=== PATIENT | male | born 1975 | race Caucasian/White ===

== ENCOUNTER 2016-06-21 11:31 | Emergency (ER) ==
[2016-06-21 11:38] VITALS: BP 126/87
--- NOTE | 2016-06-21 11:54 | PROVIDER DOCUMENTATION ---
HPI-General Adult - General Source: patient <Isa Swartz - Last Filed: 06/21/16 11:51> - General Source: patient - History of Present Illness -Gen Adult Nature of Presenting Problems: Pt is 40 y/o M presents to the ED with request of prescriptions. Pt states he is out meds for neb and his inhaler. Pt states he does not have a PCP. Pt denies F Location of Pain/Injury: reports: none Pain Radiation: reports: no radiation Quality of Pain: reports: none Onset/Duration: reports: unsure Context/Activities at Onset: reports: light activity Modifying Factors: improves with: nothing Associated Symptoms: reports: cough (chronic). denies: anxiety, arm pain, back/ neck pain, chest pain, constipation, diaphoresis, diarrhea, dizziness, EENT symptoms, fatigue, fever/chills, genitourinary problems, headaches, heartburn, joint pain, loss of appetite, malaise, muscle aches, sinus congestion/drainage, nausea, rash, seizure, shortness of breath, sensory/motor loss, pain with inspiration, swelling/mass in abdomen, syncope, vomiting, weakness, trouble walking Similar Symptoms Previously?: Yes Recently seen or treated by another doctor?: No <Jaylin Sahu - Last Filed: 06/21/16 12:01> - General Chief Complaint: Request RX Stated Complaint: REQUEST RX Time Seen by Provider: 06/21/16 11:43 Allergies/Adverse Reactions: Patient Allergies Allergy/AdvReac Type Severity Reaction Status Date / Time No Known Allergies Allergy Verified 05/04/16 10:48 Home Medications: Home Medication List Medication Instructions Recorded Confirmed Last Taken Type Albuterol Sulfate [Albuterol 8.5 gm IH Q4-6H PRN PRN #1 05/04/16 Unknown Rx Sulfate Hfa] [email or web address] Albuterol [Albuterol Neb] 2.5 mg .SEE ORDER BID 05/04/16 05/04/16 Unknown History Albuterol [Albuterol Neb] 2.5 mg INH Q4H PRN PRN #30 neb 05/04/16 Unknown Rx Albuterol Sulfate Inhaler 2 puff INH [id number] #1 inhaler 05/17/16 Unknown Rx [Ventolin Hfa] Albuterol 2.5MG/Ipratrop 0.5MG 3 ml INH Q4-6H PRN PRN #60 neb 06/21/16 Unknown Rx [Duoneb] Albuterol [Albuterol Neb] 2.5 mg INH Q4H PRN PRN #60 neb 06/21/16 Unknown Rx Review of Systems - Adult - REVIEW OF SYSTEMS - ADULT Constitutional: denies: chills, fever Eyes: denies: blurred vision, double vision Ears, Nose, Mouth & Throat: denies: ear pain, nose pain, throat pain Cardiovascular: reports: irregular heart rate (tachy). denies: chest pain, heart murmur Respiratory: reports: cough. denies: shortness of breath, wheezing Gastrointestinal: denies: abdominal pain, diarrhea, nausea, vomiting Genitourinary: denies: dysuria, hematuria Musculoskeletal: denies: bone pain, joint pain, neck pain Integumentary: denies: hives, itching Neurological: denies: dizziness/vertigo, headache/migraines Psychiatric: reports: no symptoms reported Endocrine: reports: no symptoms reported Hematologic/Lymphatic: reports: no symptoms reported Allergic/Immunologic: reports: no symptoms reported All Other Systems: Reviewed and Negative <Jaylin Sahu - Last Filed: 06/21/16 12:01> Past History - Adult - PAST MEDICAL HISTORY-ADULT Major Childhood Illnesses: reports: denies history Cardiovascular: reports: denies history Respiratory: reports: asthma, COPD Gastrointestinal: reports: denies history Obstetrical/Gynecological: reports: denies history Genitourinary: reports: denies history Musculoskeletal: reports: denies history Neurological: reports: denies history Endocrine/Immune: reports: denies history Other Conditions: reports: denies history - PRIOR SURGERIES/PROCEDURES Surgical/Procedure History: reports: appendectomy, other (Right lung chest tube) - IMMUNIZATION STATUS Childhood Immunizations: See Nurse Assessment Flu Vaccine: See Nurse Assessment - FAMILY HISTORY Family History: reviewed, not pertinent <Isa Swartz - Last Filed: 06/21/16 11:51> - PAST MEDICAL HISTORY-ADULT Review of Records: reports: Nursing Assessment Review, Medications Reviewed, Social history reviewed & non-contributory. Major Childhood Illnesses: reports: denies history Cardiovascular: reports: denies history Respiratory: reports: asthma, COPD Gastrointestinal: reports: denies history Obstetrical/Gynecological: reports: denies history Genitourinary: reports: denies history Musculoskeletal: reports: denies history Neurological: reports: denies history Endocrine/Immune: reports: denies history Other Conditions: reports: denies history - PRIOR SURGERIES/PROCEDURES Surgical/Procedure History: reports: appendectomy - IMMUNIZATION STATUS Childhood Immunizations: See Nurse Assessment Flu Vaccine: See Nurse Assessment - FAMILY HISTORY Family History: reviewed, not pertinent - SOCIAL HISTORY Smoking: cigarettes, greater than 1 pack/day Provider spent 3-5 mins advising pt. on dangers of tobacco.: Discussed manners to quit use, and f/u contacts for add'l counseling. Substance Use: alcohol Alcohol Use Frequency: occasionally Number of drinks per typical drinking period:: 2 drinks Living Situation: family <Jaylin Sahu - Last Filed: 06/21/16 12:01> Physical Exam-General - PHYSICAL EXAM-ADULT Initial Vital Signs Reviewed: Yes - CONSTITUTIONAL General Appearance: appears well, alert, no apparent distress - EYES Eyes: PERRL/EOMI, pink conjunctivae, fundi clear, no AV nicking - HEAD, EARS, NOSE, MOUTH & THROAT HENMT: normocephalic/atraumatic, moist mucous membranes, normal ENT inspection, TMs normal, pharynx normal - NECK Neck: non-tender, full range of motion, supple, normal inspection - RESPIRATORY Respiratory: chest non-tender, lungs clear, no pleuratic chest pain, no respiratory distress, no accessory muscle use, wheezing (bilateral) - CARDIOVASCULAR Cardiovascular: normal peripheral pulses, no edema, no gallop, no JVD, no murmur , tachycardia - GASTROINTESTINAL (ABDOMEN) Abdominal Exam: normal bowel sounds, non tender, soft, no organomegaly, no pulsatile mass - LYMPHATIC Lymphatic: no adenopathy - MUSCULOSKELETAL Back Exam: normal inspection, no CVA tenderness, no vertebral tenderness Extremity: normal range of motion, non-tender, normal gait, normal inspection, no pedal edema, no calf tenderness, normal capillary refill, pelvis stable - SKIN Integumentary: normal color, normal turgor, warm/dry - NEUROLOGIC 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, grossly normal, no motor/sensory deficits - PSYCHIATRIC Psych/Mental Status: normal mood/affect, normal thought content, normal thought process, oriented x 3 <Jaylin Sahu - Last Filed: 06/21/16 12:01> Progress - PLAN OF CARE/RESULTS Progress/Plan/Lab Results: Vital Signs - 24 hr 06/21/16 11:35 Temperature 98 F Pulse Rate 126 H Respiratory 20 Rate Blood Pressure 126/87 O2 Sat by Pulse 96 Oximetry <Jaylin Sahu - Last Filed: 06/21/16 12:01> Departure - Departure Time of Disposition Order: 11:52 Certified Medical Emergency: Emergent <Isa Swartz - Last Filed: 06/21/16 11:51> - Departure Time of Disposition Order: 12:01 Certified Medical Emergency: Emergent <Jaylin Sahu - Last Filed: 06/21/16 12:01> - Departure DIAGNOSIS: Encounter for medication refill COPD (chronic obstructive pulmonary disease) Qualifiers: COPD type: unspecified COPD Qualified Code(s): J44.9 - Chronic obstructive pulmonary disease, unspecified Disposition: HOME 01 Condition: Stable Additional Instructions: Take medications as directed. Follow up with PCP for further management. Return if symptoms get worse. ED Follow Up Instructions: You have been treated by a care provider in the Emergency Department. These instructions are being provided to you so you can have an understanding of how to care for yourself upon discharge. Upon discharge from the Emergency Department, you are responsible for making arrangements for follow-up care by a physician of your choice. Take all prescribed medications as directed. Return to the Emergency Department immediately for any new or worsening symptoms. You may call the Physician Referral phone number at [phone] to obtain a list of Physicians who are taking new patients. Prescriptions: Albuterol [Albuterol Neb] 2.5 mg INH Q4H PRN PRN #60 neb PRN Reason: Shortness Of Breath Albuterol 2.5MG/Ipratrop 0.5MG [Duoneb] 3 ml INH Q4-6H PRN PRN #60 neb PRN Reason: Shortness Of Breath Referrals: Chris Armendariz MD [STAFF PHYSICIAN] - Forms: Return to School/Parent Work Instructions: Albuterol inhalation aerosol, Chronic Obstructive Pulmonary Disease, [id number], Albuterol; Ipratropium inhalation aerosol Attestation - Physician/ NAIN Attestation Patient care was provided by Advanced Practice Provider:: Yes Advanced Practice Provider:: Isa Swartz Advanced Practice Provider documentation review:: The Mid-level provider documentation, treatment plan and medical decision making was reviewed by the physician who agrees with all treatment and medical decision making by the MLP. <Isa Swartz - Last Filed: 06/21/16 11:51> - Scribe Verification/Attestation Scribe:: Jaylin Sahu Acting as Scribe for:: Isa Swartz Scribe documention review:: This chart was documented by a scribe and accurately reflects the service the provider performed and the decisions made by the provider. <Jaylin Sahu - Last Filed: 06/21/16 12:01> Physician Attestation
== END 2016-06-21 12:01 | disposition home or self-care (01) ==
LOC: P.ED 11:31
DX: J44.9 Chronic obstructive pulmonary disease, unspecified (principal); R05 Cough; R00.0 Tachycardia, unspecified; R06.2 Wheezing; J45.909 Unspecified asthma, uncomplicated; F17.210 Nicotine dependence, cigarettes, uncomplicated; Z76.0 Encounter for issue of repeat prescription; Z71.6 Tobacco abuse counseling
CPT/HCPCS: 99281

== ENCOUNTER 2016-07-05 00:14 | Emergency (ER) ==
[2016-07-05 00:52] LABS: URINE SOURCE VOIDED
[2016-07-05 00:59] LABS: BILIRUBIN URINE NEGATIVE (NEGATIVE); BLOOD URINE NEGATIVE (NEGATIVE); CLARITY CLEAR (CLEAR); COLOR YELLOW; GLUCOSE URINE NEGATIVE (NEGATIVE); LEUKOCYTES URINE NEGATIVE (NEGATIVE); NITRITE URINE NEGATIVE (NEGATIVE); PROTEIN URINE 1+(30 mg/dL) mg/dL (NEGATIVE); UROBILINOGEN URINE NORMAL
[2016-07-05] MEDS ORDERED: DUONEB (A & A) INH ONE (01:00)
--- NOTE | 2016-07-05 01:00 | PROVIDER DOCUMENTATION ---
HPI-General Adult - General Chief Complaint: General Adult Stated Complaint: RASH Time Seen by Provider: 07/05/16 00:52 Source: patient Allergies/Adverse Reactions: Patient Allergies Allergy/AdvReac Type Severity Reaction Status Date / Time No Known Allergies Allergy Verified 07/05/16 00:29 Home Medications: Home Medication List Medication Instructions Recorded Confirmed Last Taken Type Albuterol [Albuterol Neb] 2.5 mg INH Q4H PRN PRN #60 neb 06/21/16 1 Day Ago Rx Azithromycin [Zithromax Z-Khurram] 250 mg PO DIRECTED #1 pkg 07/05/16 Unknown Rx Butenafine HCl [Lotrimin Ultra] 24 gm TP BID #1 tube 07/05/16 Unknown Rx Methylprednisolone [Medrol Dosepak] 4 mg PO DIRECTED #1 package 07/05/16 Unknown Rx - History of Present Illness -Gen Adult Nature of Presenting Problems: 40 yom c/o generalized rash that started 2 weeks ago. Location of Pain/Injury: reports: generalized Quality of Pain: reports: none Onset/Duration: reports: other Timing: reports: still present, getting worse Context/Activities at Onset: reports: none Modifying Factors: improves with: nothing Associated Symptoms: reports: rash Similar Symptoms Previously?: No Recently seen or treated by another doctor?: No - Sickle Cell Pain Related Context Sickle Cell Pain Location: reports: none Review of Systems - Adult - REVIEW OF SYSTEMS - ADULT Constitutional: reports: see HPI. denies: no symptoms reported, chills, fever, fatique, night sweats, weight gain, weight loss, other Eyes: reports: no symptoms reported. denies: see HPI, discharge, dry eyes, decreased vision, blurred vision, double vision, eye pain, redness, other Ears, Nose, Mouth & Throat: reports: no symptoms reported. denies: see HPI, ear discharge, ear pain, hearing loss, tinnitus, epistaxis, sinus problem, nose pain, loose teeth, mouth/dental pain, mouth swelling, hoarseness, throat pain, throat swelling, other Cardiovascular: reports: no symptoms reported. denies: see HPI, chest pain, edema, heart murmur, irregular heart rate, orthopnea, palpitations, poor circulation, PND, syncope, other Respiratory: reports: cough, wheezing. denies: no symptoms reported, see HPI, chronic cough, dyspnea on exertion, excessive sputum production, hemoptysis, pleurisy, shortness of breath, other Gastrointestinal: reports: no symptoms reported. denies: see HPI, abdominal pain, hematemesis, constipation, diarrhea, difficulty swallowing, frequent heartburn, nausea, poor appetite, rectal bleeding, vomiting, other Genitourinary: reports: no symptoms reported. denies: see HPI, dysuria, discharge, frequency, flank pain, frequent UTI's, hematuria, hesitency, incontinence, urinary retention, urgency, other Musculoskeletal: reports: no symptoms reported. denies: see HPI, bone pain, back pain, frequent leg cramps, joint pain, joint swelling, muscle aches, muscle weakness, neck pain, other Integumentary: reports: see HPI, itching Psychiatric: reports: no symptoms reported. denies: see HPI, anxiety, anti- depressant use, alcohol/drug dependence, depression, emotional problems, insomnia, panic attacks, suicidal thoughts, other All Other Systems: Reviewed and Negative Past History - Adult - PAST MEDICAL HISTORY-ADULT Review of Records: reports: Old Records Reviewed, Nursing Assessment Review, Medications Reviewed, Social history reviewed & non-contributory. Major Childhood Illnesses: reports: denies history Cardiovascular: reports: denies history Respiratory: reports: asthma, COPD Gastrointestinal: reports: denies history Obstetrical/Gynecological: reports: denies history Genitourinary: reports: denies history Musculoskeletal: reports: denies history Neurological: reports: denies history Endocrine/Immune: reports: denies history Other Conditions: reports: denies history - PRIOR SURGERIES/PROCEDURES Surgical/Procedure History: reports: appendectomy, other (Right lung chest tube) - IMMUNIZATION STATUS Childhood Immunizations: See Nurse Assessment Flu Vaccine: See Nurse Assessment - FAMILY HISTORY Family History: reviewed, not pertinent Physical Exam-General - PHYSICAL EXAM-ADULT Initial Vital Signs Reviewed: Yes - CONSTITUTIONAL General Appearance: appears well, alert, no apparent distress. negative: mild distress, moderate distress, severe distress, cachetic, obese, thin, anxious, lethargic, slow to respond, obtunded, combative, other - EYES Eyes: PERRL/EOMI, pink conjunctivae. negative: fundi clear, no AV nicking, anisocoria, conjuctival exudate, EOM palsy, meningismus, pale conjunctivae, photophobia, sclera injected, scleral icterus, subconjunctival hemorrhage, sunken eyes, other - HEAD, EARS, NOSE, MOUTH & THROAT HENMT: normocephalic/atraumatic, moist mucous membranes, normal ENT inspection, TMs normal, pharynx normal. negative: angioedema, dental decay, hearing deficit , pharyngeal erythema, tonsillar exudate, TM abnormal, TM obscurred by cerumen, frontal tenderness, maxillary tenderness, other - NECK Neck: non-tender, full range of motion, supple, normal inspection. negative: Brudzinski's sign, carotid bruit, C-spine tenderness, limited range of motion, lymphadenopathy, meningismus, trachial deviation, tender lateral, tender midline , thyromegaly, other - RESPIRATORY Respiratory: chest non-tender, no pleuratic chest pain, no respiratory distress , no accessory muscle use, rhonchi. negative: lungs clear, normal breath sounds , respiratory distress, decreased breath sounds, accessory muscle use, crackles , rales, stridor, wheezing, dull on percussion, prolonged expiration, pain on inspiration, plerual rub, retractions, splinting, decreased rate, increased rate , crepitus, other - CARDIOVASCULAR Cardiovascular: normal peripheral pulses, regular rate, rhythm, no edema, no gallop, no JVD, no murmur. negative: JVD, bradycardia, tachycardia, diastolic murmur, systolic murmur, gallop/S3, gallop/S4, extra beats, friction rub, irregularly irregular, PMI displaced laterally, other - GASTROINTESTINAL (ABDOMEN) Abdominal Exam: normal bowel sounds, non tender, soft, no organomegaly, no pulsatile mass. negative: abdominal bruit, abnormal bowel sounds, distended, guarding, rigid, rebound, tenderness, hernia, mass, hepatomegaly, spleenomegaly , McBurney's point tenderness, Beck's sign, obturator sign, prominent aortic pulsations, psoas, Rovsing's sign, other - GENITOURINARY Male Genitalia: deferred - LYMPHATIC Lymphatic: no adenopathy - MUSCULOSKELETAL Back Exam: normal inspection, no CVA tenderness, no vertebral tenderness. negative: CVA tenderness, decreased range of motion, ecchymosis, kyphosis, lordosis, muscle spasm, scoliosis, swelling, vertebral tenderness, other Extremity: normal range of motion, non-tender, normal gait, normal inspection, no pedal edema, no calf tenderness, normal capillary refill. negative: pelvis stable, abnormal NV exam, calf tenderness, deformity, erythema, inflammation, joint effusion, pulse deficit, pedal edema, slow capillary refill, swelling, tenderness, other - SKIN Integumentary: rash - NEUROLOGIC Neurologic: grossly normal - PSYCHIATRIC Psych/Mental Status: oriented x 3 Departure - Departure Time of Disposition Order: 01:11 DIAGNOSIS: Bronchitis, Ringworm of body Disposition: HOME 01 Certified Medical Emergency: Emergent Condition: Stable Additional Instructions: ED Follow Up Instructions: You have been treated by a care provider in the Emergency Department. These instructions are being provided to you so you can have an understanding of how to care for yourself upon discharge. Upon discharge from the Emergency Department, you are responsible for making arrangements for follow-up care by a physician of your choice. Take all prescribed medications as directed. Return to the Emergency Department immediately for any new or worsening symptoms. You may call the Physician Referral phone number at [phone] to obtain a list of Physicians who are taking new patients. Prescriptions: Butenafine HCl [Lotrimin Ultra] 24 gm TP BID #1 tube Methylprednisolone [Medrol Dosepak] 4 mg PO DIRECTED #1 package Azithromycin [Zithromax Z-Khurram] 250 mg PO DIRECTED #1 pkg Attestation - Physician/ NAIN Attestation Patient care was provided by Advanced Practice Provider:: Yes Advanced Practice Provider:: Noah Mejia Advanced Practice Provider documentation review:: The Mid-level provider documentation, treatment plan and medical decision making was reviewed by the physician who agrees with all treatment and medical decision making by the [facility]. Physician Attestation - Physician Attestation I, the provider, attest to the following statement:: Noah Mejia Physician documentation Attestation:: This documentation recorded by the scribe accurately reflects the service I personally performed and the decisions made by me.
[2016-07-05] MEDS ORDERED: ZOFRAN ODT PO ONE (01:01)
[2016-07-05] MEDS ORDERED: ZITHROMAX PO ONE (01:26)
[2016-07-05 01:35] LABS: UR AMPHETAMINES QUAL NONE DETECTED (NONE DETECT); UR BARBITUATES QUAL NONE DETECTED (NONE DETECT); UR BENZODIAZEPIN QUAL NONE DETECTED (NONE DETECT); UR CANNABINOIDS QUAL NONE DETECTED (NONE DETECT); UR COCAINE QUAL NONE DETECTED (NONE DETECT); UR MDMA QUAL NONE DETECTED (NONE DETECT); UR METHADONE QUAL NONE DETECTED (NONE DETECT); UR METHAMPHETAMINE QUAL NONE DETECTED (NONE DETECT); UR OPIATES QUAL NONE DETECTED (NONE DETECT); UR OXYCODONE QUAL NONE DETECTED (NONE DETECT); UR PCP QUAL NONE DETECTED (NONE DETECT); UR TCA QUAL NONE DETECTED (NONE DETECT)
[2016-07-05 01:36] LABS: URINE CULTURE PL NEEDED? YES; URINE EPITHELIAL CELLS <10 /HPF (<10); URINE RBC <10 /HPF (<10); URINE WBC <10 /HPF (<10)
[2016-07-05 01:43] VITALS: BP 141/86
--- NOTE | 2016-07-05 08:29 | Diag Imaging Result Document ---
PROCEDURE NAME: CHEST-2 VIEWS - 07/05/2016 FRONTAL AND LATERAL CHEST, TWO VIEWS: COMPARISON: Compared to 04/07/2016. FINDINGS: The lungs are well expanded. The heart is not enlarged. The vessels are small. There is a tiny right effusion versus pleural thickening. Surgical clips overlie the lateral right chest. No pneumonia. No pneumothoraces. IMPRESSION: No acute abnormality.
== END 2016-07-05 01:43 | disposition home or self-care (01) ==
LOC: P.ED 00:14
DX: J40 Bronchitis, not specified as acute or chronic (principal); B35.9 Dermatophytosis, unspecified; R21 Rash and other nonspecific skin eruption; R05 Cough; R06.2 Wheezing; L29.9 Pruritus, unspecified; J44.9 Chronic obstructive pulmonary disease, unspecified
CPT/HCPCS: 71020; 80305; 81001; 87088; 99284; 94640-76

== ENCOUNTER 2016-07-10 14:14 | Emergency (ER) ==
[2016-07-10 14:22] VITALS: BP 120/80
--- NOTE | 2016-07-10 15:23 | PROVIDER DOCUMENTATION ---
HPI-Respiratory General - General Chief Complaint: Request RX Stated Complaint: REQUEST RX Time Seen by Provider: 07/10/16 14:57 Source: patient Allergies/Adverse Reactions: Patient Allergies Allergy/AdvReac Type Severity Reaction Status Date / Time No Known Allergies Allergy Verified 07/05/16 00:29 Home Medications: Home Medication List Medication Instructions Recorded Confirmed Last Taken Type Albuterol [Albuterol Neb] 2.5 mg INH Q4H PRN PRN #60 neb 06/21/16 1 Day Ago Rx Azithromycin [Zithromax Z-Khurram] 250 mg PO DIRECTED #1 pkg 07/05/16 Unknown Rx Butenafine HCl [Lotrimin Ultra] 24 gm TP BID #1 tube 07/05/16 Unknown Rx Methylprednisolone [Medrol Dosepak] 4 mg PO DIRECTED #1 package 07/05/16 Unknown Rx Albuterol [Albuterol Neb] 2.5 mg INH Q4H PRN PRN #1 neb 07/10/16 Unknown Rx - History of Present Illness-Resp Nature of Presenting Problem: 40 y/o WM here for refill of the abluterol nebulizers. 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 Denies cough or congestion , except wheezing at night "that has always happened." Denies fevers or chills. Review of Systems - Adult - REVIEW OF SYSTEMS - ADULT Constitutional: reports: no symptoms reported. denies: chills, fever, fatique Eyes: reports: no symptoms reported. denies: decreased vision, blurred vision, double vision, eye pain Ears, Nose, Mouth & Throat: reports: no symptoms reported. denies: ear pain, nose pain, throat pain Cardiovascular: reports: no symptoms reported. denies: chest pain, irregular heart rate, palpitations Respiratory: reports: no symptoms reported. denies: cough, shortness of breath , wheezing Gastrointestinal: reports: no symptoms reported. denies: abdominal pain, diarrhea, difficulty swallowing, nausea, vomiting Genitourinary: reports: no symptoms reported Musculoskeletal: reports: no symptoms reported. denies: back pain Integumentary: reports: no symptoms reported. denies: rash Neurological: reports: no symptoms reported. denies: headache/migraines Psychiatric: reports: no symptoms reported Endocrine: reports: no symptoms reported Hematologic/Lymphatic: reports: no symptoms reported Allergic/Immunologic: reports: no symptoms reported All Other Systems: Reviewed and Negative Past History - Adult - PAST MEDICAL HISTORY-ADULT Review of Records: reports: Old Records Reviewed, Nursing Assessment Review, Medications Reviewed Major Childhood Illnesses: reports: denies history Cardiovascular: reports: denies history Respiratory: reports: asthma, COPD Gastrointestinal: reports: denies history Genitourinary: reports: denies history Musculoskeletal: reports: denies history Neurological: reports: denies history Endocrine/Immune: reports: denies history Other Conditions: reports: denies history - PRIOR SURGERIES/PROCEDURES Surgical/Procedure History: reports: appendectomy, other (Right lung chest tube) - IMMUNIZATION STATUS Childhood Immunizations: See Nurse Assessment Flu Vaccine: See Nurse Assessment - FAMILY HISTORY Family History: reviewed, not pertinent - SOCIAL HISTORY Smoking: greater than 1 pack/day Provider spent 3-5 mins advising pt. on dangers of tobacco.: Discussed manners to quit use, and f/u contacts for add'l counseling. Substance Use: none/never Alcohol Use Frequency: never Living Situation: family Physical Exam-General - PHYSICAL EXAM-ADULT Initial Vital Signs Reviewed: Yes - CONSTITUTIONAL General Appearance: appears well, alert, no apparent distress - EYES Eyes: PERRL/EOMI, pink conjunctivae - HEAD, EARS, NOSE, MOUTH & THROAT HENMT: normocephalic/atraumatic, moist mucous membranes, normal ENT inspection - NECK Neck: non-tender, full range of motion, supple, normal inspection. negative: lymphadenopathy - RESPIRATORY Respiratory: chest non-tender, normal breath sounds, no pleuratic chest pain, no respiratory distress, no accessory muscle use, wheezing (mild expiratory wheeze). negative: decreased breath sounds, accessory muscle use, crackles, rales, rhonchi - CARDIOVASCULAR Cardiovascular: normal peripheral pulses, regular rate, rhythm - MUSCULOSKELETAL Extremity: normal gait - SKIN Integumentary: normal color, normal turgor, warm/dry - NEUROLOGIC Neurologic: grossly normal, no motor/sensory deficits - PSYCHIATRIC Psych/Mental Status: normal mood/affect, normal thought content, normal thought process Progress - PLAN OF CARE/RESULTS Progress/Plan/Lab Results: Vital Signs Temp Pulse Resp BP Pulse Ox 07/10/16 14:19 97.8 F 105 H 18 120/80 99 No Known Allergies Allergy (Verified 07/05/16 00:29) Albuterol [Albuterol Neb] 2.5 mg INH Q4H PRN PRN #60 neb 06/21/16 Azithromycin [Zithromax Z-Khurram] 250 mg PO DIRECTED #1 pkg 07/05/16 Butenafine HCl [Lotrimin Ultra] 24 gm TP BID #1 tube 07/05/16 Methylprednisolone [Medrol Dosepak] 4 mg PO DIRECTED #1 package 07/05/16 Albuterol [Albuterol Neb] 2.5 mg INH Q4H PRN PRN #1 neb 07/10/16 Departure - Departure Time of Disposition Order: 15:21 DIAGNOSIS: Encounter for medication refill Asthma Qualifiers: Asthma severity: mild intermittent Asthma complication type: uncomplicated Qualified Code(s): J45.20 - Mild intermittent asthma, uncomplicated Disposition: HOME 01 Certified Medical Emergency: Emergent Condition: Stable Additional Instructions: Follow up with a primary care physician ED Follow Up Instructions: You have been treated by a care provider in the Emergency Department. These instructions are being provided to you so you can have an understanding of how to care for yourself upon discharge. Upon discharge from the Emergency Department, you are responsible for making arrangements for follow-up care by a physician of your choice. Take all prescribed medications as directed. Return to the Emergency Department immediately for any new or worsening symptoms. You may call the Physician Referral phone number at [phone] to obtain a list of Physicians who are taking new patients. Prescriptions: Albuterol [Albuterol Neb] 2.5 mg INH Q4H PRN PRN #1 neb PRN Reason: Wheezing Referrals: None,PCP [Primary Care Provider] - Attestation - Physician/ NAIN Attestation Patient care was provided by Advanced Practice Provider:: Yes Advanced Practice Provider:: Reena Martini Advanced Practice Provider documentation review:: The Mid-level provider documentation, treatment plan and medical decision making was reviewed by the physician who agrees with all treatment and medical decision making by the MLP.
== END 2016-07-10 15:37 | disposition home or self-care (01) ==
LOC: ED 14:14
DX: J45.20 Mild intermittent asthma, uncomplicated (principal); Z76.0 Encounter for issue of repeat prescription; R06.2 Wheezing; J44.9 Chronic obstructive pulmonary disease, unspecified; Z79.899 Other long term (current) drug therapy
CPT/HCPCS: 99281

== ENCOUNTER 2016-08-19 09:15 | Inpatient (IN) ==
[2016-08-19] MEDS ORDERED: LIBRIUM PO ONE (10:13)
[2016-08-19] MEDS ORDERED: M.V.I.-12 10 ML, FOLIC ACID 1 MG, MAGNESIUM SULFATE 1 GM, THIAMINE 100 MG in NS 1,000 ML IV ONE (10:13)
[2016-08-19] MEDS ORDERED: ATIVAN IV ONE (10:13)
[2016-08-19 10:19] LABS: MANUAL DIFF NEEDED? NO
[2016-08-19 10:25] LABS: HEMATOCRIT 40.6 % (42.0-52.0); HEMOGLOBIN 14.4 g/dL (14.0-18.0); IMM GRAN# 0.07 X1000 (0.0-0.04); IMM GRAN% 1.2 % (0.0-0.5); LYMPH# 0.75 X1000 (1.2-3.4); LYMPH% 12.9 % (20.5-51.1); MCH 36.8 PG (27-31); MCHC 35.5 g/dL (33-37); MCV 103.8 FL (81-99); MONO# 0.58 X1000 (0.11-0.59); MPV 10.1 FL (7.4-10.4); NEUT% 75.9 % (42.2-75.2); PLT 202 X1000 (130-400); RBC 3.91 XMIL (4.7-6.1)
[2016-08-19] MEDS ORDERED: MORPHINE IV ONE (10:37)
[2016-08-19] MEDS ORDERED: ZOFRAN IV ONE (10:37)
[2016-08-19 10:43] LABS: AGAP 20; ALBUMIN 4.4 g/dL (3.5-5.0); ALKALINE PHOSPHATASE 82 U/L (32-122); BUN 11 mg/dL (8-22); CALCIUM 8.9 mg/dL (8.8-10.2); CHLORIDE 98 mmol/L (98-107); COSMO 277; GOT 186 U/L (10-34); GPT 84 U/L (10-44); POTASSIUM 4.9 mmol/L (3.5-5.1); SODIUM 140 mmol/L (136-145); TCO2 22 mmol/L (25-35); TOTAL BILIRUBIN 0.91 mg/dL (0.20-1.00); TOTAL PROTEIN 7.6 g/dL (6.3-8.3)
--- NOTE | 2016-08-19 11:12 | Diag Imaging Result Document ---
PROCEDURE NAME: ANKLE COMPLETE RIGHT - 08/19/2016 PORTABLE RIGHT ANKLE TWO VIEWS: FINDINGS: There is an oblique fracture through the distal shaft of the fibula with several millimeters of displacement. I believe there are other nondisplaced fractures through the distal fibula as well. Lateral views suggest a fracture through the anterior tibia which is nondisplaced. There is soft tissue swelling. IMPRESSION: Fractures though the distal tibia and fibula.
[2016-08-19] MEDS ORDERED: DUONEB (A & A) INH ONE ×2 (11:29→11:43)
--- NOTE | 2016-08-19 12:01 | PROVIDER DOCUMENTATION ---
This chart was entered by Thang Cheng Scribe, acting as scribe for Az Yuan PA. HPI-Musculoskeletal Pain/Inj - GENERAL Chief Complaint: Extremity Injury Stated Complaint: FALL Time Seen by Provider: 08/19/16 09:40 Source: patient - HX OF PRESENT ILLNESS-MUSKULOSKELTAL Nature of Presenting Problem: patient is a 41 y/o M that presents to the ER via EMS after having a "passing out" episode and slipping on [place] and injuring Right ankle. patient has long-standing history of syncope since 10 in which he has 2 to 3 episodes a month. He has been worked up for same symptoms in past. Patient is a daily drinker and smoker. he received a breathing tx en route. Quality of Pain: reports: aching, dull Severity in ED: moderate Onset/Duration: abrupt, this morning Timing: still present, constant Modifying Factors: worse with: movement Any recent injury?: No Locality of Occurance: Other (The local [facility]) Similar Symptoms Previously?: No Recently seen or treated by another doctor?: Yes (last week at [facility]) - FALL INJURY Location of Pain/Injury: reports: lower extremity (right ankle) Pain Radiation: reports: no radiation Reason for Fall: reports: fainted, slipped Symptoms prior to fall:: reports: none Loss of Consciousness: brief (seconds) Injury Associated Symptoms: reports: joint pain. denies: chest pain, dizziness , shortness of breath Review of Systems - Adult - REVIEW OF SYSTEMS - ADULT Constitutional: denies: chills, fever Eyes: reports: no symptoms reported Ears, Nose, Mouth & Throat: denies: ear discharge, ear pain, throat pain, throat swelling Cardiovascular: reports: syncope (everymonth x 2 to 3 events since ). denies : chest pain, palpitations Respiratory: denies: chronic cough, cough, shortness of breath, wheezing Gastrointestinal: denies: abdominal pain, diarrhea, nausea, vomiting Genitourinary: reports: no symptoms reported Musculoskeletal: reports: joint pain. denies: back pain, muscle aches, neck pain Integumentary: reports: no symptoms reported Neurological: reports: syncope. denies: dizziness/vertigo, headache/migraines, seizure Psychiatric: reports: alcohol/drug dependence Endocrine: reports: no symptoms reported Hematologic/Lymphatic: reports: no symptoms reported Allergic/Immunologic: reports: no symptoms reported All Other Systems: Reviewed and Negative Past History - Adult - PAST MEDICAL HISTORY-ADULT Review of Records: reports: Old Records Reviewed, Nursing Assessment Review, Medications Reviewed Respiratory: reports: asthma, COPD - PRIOR SURGERIES/PROCEDURES Surgical/Procedure History: reports: appendectomy, other (Right lung chest tube , lobectomy) - IMMUNIZATION STATUS Childhood Immunizations: See Nurse Assessment Flu Vaccine: See Nurse Assessment - FAMILY HISTORY Family History: reviewed, not pertinent - SOCIAL HISTORY Smoking: cigarettes, greater than 1 pack/day Alcohol Use Frequency: every day Living Situation: homeless Physical Exam-Injury Related - Physical Exam-Injury Related Initial Vital Signs Reviewed: Yes General Appearance: alert, no apparent distress Eyes: PERRL/EOMI, pink conjunctivae Head, Ears, Nose, Mouth & Throat: normocephalic/atraumatic, moist mucous membranes, normal ENT inspection Neck: non-tender, full range of motion, normal inspection Respiratory: lungs clear, normal breath sounds, no respiratory distress, no accessory muscle use Cardiovascular: regular rate, rhythm, no edema, no murmur Abdominal Exam: normal bowel sounds, non tender, soft, no organomegaly, no pulsatile mass Extremity: normal capillary refill, pelvis stable, swelling (right ankle), tenderness (right ankle) Integumentary: normal color, warm/dry 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, no motor/sensory deficits Psych/Mental Status: normal mood/affect, normal thought content, normal thought process, oriented x 3 - Glascow Coma Score Best Eye Response (Zhanna): (4) open spontaneously Best Verbal Response (Zhanna): (5) oriented Best Motor Response (Lawrence): (6) obeys commands Lawrence Total: 15 Progress - PLAN OF CARE/RESULTS Progress/Plan/Lab Results: Vital Signs - 8 hr 08/19/16 09:24 08/19/16 10:56 08/19/16 11:53 Temperature 98.0 F Pulse Rate 108 H 91 H 104 H Respiratory Rate 18 16 18 Blood Pressure 132/75 121/72 O2 Sat by Pulse Oximetry 97 99 Laboratory Results - last 24 hr 08/19/16 08/19/16 08/19/16 10:00 10:00 10:00 WBC 5.80 RBC 3.91 L Hgb 14.4 Hct 40.6 L MCV 103.8 H MCH 36.8 H MCHC 35.5 RDW Std Deviation 14.4 Plt Count 202 MPV 10.1 Immature Gran % (Auto) 1.2 H Neut % (Auto) 75.9 H Lymph % (Auto) 12.9 L [place] % (Auto) 10.0 H Eos % (Auto) 0.0 Baso % (Auto) 0.0 Immature Gran # (Auto) 0.07 H Neut # (Auto) 4.40 Lymph # (Auto) 0.75 L [place] # (Auto) 0.58 Eos # (Auto) 0.00 Baso # (Auto) 0.00 Sodium 140 Potassium 4.9 Chloride 98 Carbon Dioxide 22 L Anion Gap 20 BUN 11 Creatinine 0.8 Estimated GFR/1.73 m2 > 60 BUN/Creatinine Ratio 14 Glucose 66 L Calculated Osmolality 277 Calcium 8.9 Magnesium Total Bilirubin 0.91 AST 186 H ALT 84 H Alkaline Phosphatase 82 Total Protein 7.6 Albumin 4.4 Globulin 3.2 Albumin/Globulin Ratio 1.4 Plasma/Serum Ethyl Alc 312 H 08/19/16 10:00 WBC RBC Hgb Hct MCV MCH MCHC RDW Std Deviation Plt Count MPV Immature Gran % (Auto) Neut % (Auto) Lymph % (Auto) [place] % (Auto) Eos % (Auto) Baso % (Auto) Immature Gran # (Auto) Neut # (Auto) Lymph # (Auto) [place] # (Auto) Eos # (Auto) Baso # (Auto) Sodium Potassium Chloride Carbon Dioxide Anion Gap BUN Creatinine Estimated GFR/1.73 m2 BUN/Creatinine Ratio Glucose Calculated Osmolality Calcium Magnesium 2.2 Total Bilirubin AST ALT Alkaline Phosphatase Total Protein Albumin Globulin Albumin/Globulin Ratio Plasma/Serum Ethyl Alc Orders Category Date Time Status OCL Splint DIRECTED Care 08/19/16 10:37 Active Saline Loc NOW Care 08/19/16 09:45 Active ANKLE COMPLETE RIGHT [RAD] Stat Exams 08/19/16 09:37 Draft ALCOHOL BLOOD Stat Lab 08/19/16 10:00 Completed CBC WITH ELECTRONIC DIFF [HEME] Stat Lab 08/19/16 10:00 Completed COMPREHENSIVE METABOLIC PANEL [CHEM] Stat Lab 08/19/16 10:00 Completed MAGNESIUM [CHEM] Stat Lab 08/19/16 10:00 Completed URINE DRUG SCREEN Stat Lab 08/19/16 11:42 Uncollected Albuterol 2.5MG/Ipratrop 0.5MG [Duoneb (A & A)] Med 08/19/16 11:29 Discontinued 3 ml INH NOW ONE Albuterol 2.5MG/Ipratrop 0.5MG [Duoneb (A & A)] Med 08/19/16 11:43 Discontinued 3 ml INH NOW ONE Chlordiazepoxide [Librium] Med 08/19/16 10:13 Discontinued 50 mg PO NOW ONE Lorazepam [Ativan] Med 08/19/16 10:13 Discontinued 1 mg IV NOW ONE Morphine Med 08/19/16 10:37 Discontinued 4 mg IV NOW ONE Mvi [M.v.i.-12] 10 ml Med 08/19/16 10:13 Discontinued Folic Acid 1 mg Magnesium Sulfate 1 gm Thiamine 100 mg 0.9% Sodium Chloride Inj [Ns] 1,000 ml IV NOW Ondansetron [Zofran] Med 08/19/16 10:37 Discontinued 4 mg IV NOW ONE Aerosol Treatments Routine Oth 08/19/16 11:29 Completed Aerosol Treatments Routine Oth 08/19/16 11:44 Completed Aerosol Treatments Stat Oth 08/19/16 11:29 Completed Aerosol Treatments Stat Oth 08/19/16 11:44 Completed EKG [EKG] Stat Ther 08/19/16 10:13 Ordered Transfer/Admit Order [TRANSFER] Routine Transfer 08/19/16 11:26 Ordered Pt's EtOH level is 312 and he is already beginning to have tremors. Reports his last drink was >12 hours ago. Ativan and librium was given which seemed to somewhat improve his symptoms. OCL splint was placed on ankle for distal fib fx. Will discuss c hospitalist service. Result Diagrams: 08/19/16 10:00 08/19/16 10:00 - REASSESSMENT Reassessment #1 Time Reassessed: 10:14 Status: worsening Reassessment Comment: began to have tremors and DT's Meds orderd - EKG 1 Time of EKG reading by physician:: 10:53 EKG Read and Signed by:: Prabhu Chang EKG Interpretation (*Must complete 3 of following elements*): Normal Rate: 91 Rhythm: NSR [place]: normal QRS: normal TN Interval: normal ST Wave: normal - XRAY 1 XRAY: Right XRAY Study: Ankle Impression: Abnormal XRAY Interpretation: distal fib fx - CONSULTS/PCP/HOSPITALIST Notification #1 *Consult/PCP/Hospitalist*: Hospitalist Service Time Discussed: 11:30 Consult Disposition: Admit Departure - Departure Time of Disposition Decision: 11:59 DIAGNOSIS: Alcohol withdrawal Qualifiers: Complication of substance-induced condition: with unspecified complication Qualified Code(s): F10.239 - Alcohol dependence with withdrawal, unspecified Fall Qualifiers: Encounter type: initial encounter Qualified Code(s): W19.XXXA - Unspecified fall, initial encounter Fibula fracture Qualifiers: Encounter type: initial encounter Fibula location: distal Fracture type: closed Fracture morphology: other fracture Laterality: right Qualified Code(s): S82.831A - Other fracture of upper and lower end of right fibula, initial encounter for closed fracture Disposition: ADMITTED INPATIENT 09 Certified Medical Emergency: Emergent Condition: Stable Referrals and Follow-Ups: None,PCP [Primary Care Provider] - - Critical Care Note This patient required my direct personal management.: No Attestation - Physician/ NAIN Attestation Patient care was provided by Advanced Practice Provider:: Yes Advanced Practice Provider:: Az Yuan Advanced Practice Provider documentation review:: The Mid-level provider documentation, treatment plan and medical decision making was reviewed by the physician who agrees with all treatment and medical decision making by the MLP. This chart was documented by the indicated scribe, (Thang Cheng, [employer]) and accurately reflects the services I performed and decisions made by me, Az Yuan PA, as attested by the provider's signature.
[2016-08-19 12:51] LABS: UR AMPHETAMINES QUAL NONE DETECTED (NONE DETECT); UR BARBITUATES QUAL NONE DETECTED (NONE DETECT); UR BENZODIAZEPIN QUAL PRESUMPTIVE POSITIVE (NONE DETECT); UR CANNABINOIDS QUAL NONE DETECTED (NONE DETECT); UR COCAINE QUAL NONE DETECTED (NONE DETECT); UR METHADONE QUAL NONE DETECTED (NONE DETECT); UR OPIATES QUAL NONE DETECTED (NONE DETECT); UR OXYCODONE QUAL NONE DETECTED (NONE DETECT); UR PCP QUAL NONE DETECTED (NONE DETECT)
--- NOTE | 2016-08-19 13:31 | HISTORY AND PHYSICAL ---
PRIMARY CARE PROVIDER: No one. CHIEF COMPLAINT: Alcohol withdrawal and right leg pain. HISTORY OF PRESENT ILLNESS: Mr. Nick Collier is a 41-year-old male with a history of asthma and alcohol abuse of 6-15 beers daily. Apparently he had no alcohol within the last 12 hours and still has an elevated alcohol level on lab work. He was very difficult to arouse and once he woke up he was able to say that he rough housed with friends and lost and since has had some right leg lower extremity pain. He does have a little bit of an expiratory wheeze and states that he smokes about 1 pack per day and that he has had green phlegm that he has been coughing up, although his white blood cell count is normal and he is afebrile. He had imaging of the right lower extremity which revealed that he had a distal shaft of the fibula with several millimeters of displacement through the distal tibia and fibula. He has an OCL splint currently. We have consulted Dr. Summers with ortho. Given his current heavily sedated type state and withdrawal symptoms, we will admit through the ICU over night and if improved over the next day or 2 can be transferred to the floor. Will treat for his withdrawal. PAST MEDICAL HISTORY: Asthma. PAST SURGICAL HISTORY: Had nerve surgery on his leg, had right shoulder surgery, and an appendectomy. SOCIAL HISTORY: He smokes 1 pack per day. States he drinks Budweiser 6-8 beers per day. Denies illicit drug use. He lives with his in kids. Apparently he got a new job at [employer] and should be starting next week. FAMILY HISTORY: Unable to obtain. REVIEW OF SYSTEMS: Review of systems were difficult to obtain but all were negative except for those mentioned in the above HPI. ALLERGIES: No known drug allergies. HOME MEDICATIONS: None. LABORATORY DATA: White blood cells 5,000, hemoglobin 14, hematocrit 40, platelet count 202,000. Sodium 140, potassium 4.9, BUN 11, creatinine 0.8, glucose 66. Magnesium 2.2, bilirubin 0.91, AST 186, ALT 84. Alcohol level of 312. Urine drug screen has been ordered, although will at least be positive for benzodiazepines and opiates given the medications he has already received in the ER. IMAGING: He had an x-ray of the right ankle which showed fractures through the distal tibia and fibula that are nondisplaced with soft tissue swelling. PHYSICAL EXAMINATION: VITAL SIGNS: Temperature is 98.0 degrees, heart rate 91, respiratory rate 16, blood pressure 121/72, O2 saturation 99% on room air. He is 6 feet 1 inch tall, 175 pounds. GENERAL: Mr. Collier is a 41-year-old male who is heavily lethargic after receiving medications for DTs. Took painful stimuli to wake him for asking questions and interviewing. HEENT: Atraumatic, normocephalic. Pupils equal, round, reactive to light. Extraocular movements intact. Mucous membranes are dry with a different odor that smells as if it is alcohol. NECK: No JVD or carotid bruits noted. CARDIOVASCULAR: S1, S2. Regular rate and rhythm. No rubs, gallops, murmurs. PULMONARY: Clear to auscultation. Bilateral breath sounds. No accessory muscle use or work of breathing noted. Some expiratory wheezes once he woke, with a wheezing cough. GI: Soft, nontender, nondistended. Positive bowel sounds x4. EXTREMITIES: Right lower extremity with OCL wrap/splint. Some abrasions above the wrap, close to his knee noted. He has +1 dorsalis pedal pulse on the left foot. He is able move both extremities. There are +2 radial pulses. SKIN: Warm, dry, intact except for the right knee abrasions. NEUROLOGIC: Oriented to name and year. Followed commands. ASSESSMENT AND PLAN: 1. Right distal tibia-fibula fractures with multiple fractures. Ortho has been consulted. An OCL is in place to secure the lower extremity. Pain regimen can be morphine 2 mg every 4 hours as needed. 2. Alcohol abuse with withdrawal symptoms. Start on Librium, p.r.n. Ativan, and banana bag daily for thiamin, magnesium, folic acid replacement. Will send to ICU for now to further monitor. Apparently he has not had alcohol or beer in the last 12 hours but still has an elevated alcohol level. 3. Transaminitis. Likely secondary to alcohol abuse and dehydration. We will monitor labs. 4. History of asthma. When he was sleeping he was clear to auscultate. When he awoke you could hear expiratory wheezing with a congested cough, although white count is normal and he is afebrile. We will just do albuterol Atrovent nebs every 6 hours, p.r.n. oxygen if needed. 5. Deep venous thrombosis prophylaxis. Lovenox. 6. Gastrointestinal prophylaxis. Proton pump inhibitor. 7. Tobacco abuse. Cessation discussed for tobacco and for alcohol. Nicotine patch applied. Dictated by PALMER Cantu for Angel Belle MD cc: PALMER Cantu MD
[2016-08-19] MEDS ORDERED: ZOFRAN IV PRN (13:37)
[2016-08-19] MEDS ORDERED: TYLENOL PO PRN (13:37)
[2016-08-19] MEDS: NICODERM PATCH TD SCH (13:53)
[2016-08-19] MEDS: TORADOL IV SCH ×2 (13:53→19:28)
[2016-08-19] MEDS: NS 1,000 ML IV SCH ×2 (13:54→23:56)
[2016-08-19] MEDS: DUONEB (A & A) INH SCH ×2 (15:18→21:15)
[2016-08-19] MEDS: ATIVAN IV PRN ×2 (18:02→22:09)
[2016-08-19] MEDS: NORCO-7.5 PO PRN ×2 (18:02→22:11)
[2016-08-19 18:19] LABS: URINE CULTURE NEEDED? NO; URINE MICRO REVIEW NEEDED? NO; URINE SOURCE CLEAN CATCH
[2016-08-19 18:29] LABS: BILIRUBIN URINE NEGATIVE (NEGATIVE); BLOOD URINE NEGATIVE (NEGATIVE); COLOR YELLOW; GLUCOSE URINE NEGATIVE (NEGATIVE); LEUKOCYTES URINE NEGATIVE (NEGATIVE); NITRITE URINE NEGATIVE (NEGATIVE); PH URINE 5.5; PROTEIN URINE NEGATIVE (NEGATIVE); SP GRAVITY URINE 1.021; TURBIDITY URINE CLEAR (CLEAR); UR EPITHELIAL CELLS <10 /HPF (<10); URINE BACTERIA NEGATIVE /HPF; URINE RBC <10 /HPF (<10); URINE WBC <10 /HPF (<10); UROBILINOGEN URINE NORMAL (NORMAL)
[2016-08-19] MEDS: LIBRIUM PO SCH (22:10)
[2016-08-20] MEDS: ATIVAN IV PRN (02:00)
[2016-08-20] MEDS: TORADOL IV SCH ×4 (02:01→19:24)
[2016-08-20] MEDS: NORCO-7.5 PO PRN (02:52)
[2016-08-20] MEDS: DUONEB (A & A) INH SCH ×6 (03:40→23:25)
[2016-08-20] MEDS: MORPHINE IV PRN ×4 (03:56→21:27)
[2016-08-20 04:47] LABS: MANUAL DIFF NEEDED? NO
[2016-08-20 04:54] LABS: EOS# 0.01 X1000 (0.0-0.7); EOS% 0.2 % (0.0-10.0); HEMATOCRIT 36.4 % (42.0-52.0); IMM GRAN# 0.03 X1000 (0.0-0.04); IMM GRAN% 0.7 % (0.0-0.5); LYMPH# 0.91 X1000 (1.2-3.4); LYMPH% 21.7 % (20.5-51.1); MCH 36.8 PG (27-31); MCHC 35.7 g/dL (33-37); MCV 103.1 FL (81-99); MONO# 0.54 X1000 (0.11-0.59); MONO% 12.9 % (1.7-9.3); NEUT% 64.5 % (42.2-75.2); PLT 127 X1000 (130-400); RBC 3.53 XMIL (4.7-6.1)
[2016-08-20 05:02] LABS: INR 1.08; PROTIME 11.4 Seconds (9.2-11.7); PTT 25.2 Seconds (22.0-36.0)
--- NOTE | 2016-08-20 05:22 | EKG Report ---
Test Performed on : 08/19/2016 10:53:28 AM Test Reason : Blood Pressure : / mmHG Vent. Rate : 091 BPM Atrial Rate : 091 BPM P-R Int : 144 ms QRS Dur : 096 ms QT Int : 356 ms P-R-T Axes : 070 075 049 degrees QTc Int : 437 ms Normal sinus rhythm. Normal ECG No previous ECGs available Unconfirmed Result
[2016-08-20 05:25] LABS: AGAP 13; ALBUMIN 3.5 g/dL (3.5-5.0); ALKALINE PHOSPHATASE 76 U/L (32-122); BUN 15 mg/dL (8-22); CALCIUM 7.6 mg/dL (8.8-10.2); CHLORIDE 97 mmol/L (98-107); COSMO 266; GOT 82 U/L (10-34); GPT 59 U/L (10-44); MAGNESIUM 1.8 mg/dL (1.5-2.7); POTASSIUM 3.8 mmol/L (3.5-5.1); SODIUM 132 mmol/L (136-145); TCO2 22 mmol/L (25-35); TOTAL BILIRUBIN 0.98 mg/dL (0.20-1.00); TOTAL PROTEIN 6.2 g/dL (6.3-8.3)
[2016-08-20] MEDS: PRILOSEC PO SCH (06:17)
[2016-08-20] MEDS: LIBRIUM PO SCH ×3 (06:17→21:26)
[2016-08-20] MEDS: M.V.I.-12 10 ML, FOLIC ACID 1 MG, MAGNESIUM SULFATE 1 GM, THIAMINE 100 MG in NS 1,000 ML IV SCH (09:25)
[2016-08-20] MEDS: LOVENOX SUBQ SCH (09:26)
[2016-08-20] MEDS: NICODERM PATCH TD SCH ×2 (09:26→11:51)
[2016-08-20] MEDS: NS 1,000 ML IV SCH ×2 (10:44→16:54)
[2016-08-20] MEDS: LIORESAL PO SCH ×2 (13:39→20:23)
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
--- NOTE | 2016-08-20 14:57 | PROGRESS NOTE ---
DATE: 08/20/2016 SUBJECTIVE: The patient reports feeling fine. He reports that he wants to quit drinking alcohol. He is feeling a little bit shaky. He reports that he had a few episodes of alcohol withdrawal in the past. OBJECTIVE: Vital Signs: Temperature 97.9 degrees, heart rate 82, respiratory 20, blood pressure 151/86. O2 saturation 96% on room air. General: This is a 41-year-old male, looking older than his age, lying in bed in no acute distress. Mildly shaking both hands. HEENT: Head is normocephalic, atraumatic. Anicteric sclerae and pale conjunctivae. Mucous membranes moist. Neck supple. No JVD noted. No carotid bruits. No lymphadenopathy. No thyromegaly. Cardiovascular: S1, S2 heard. No murmurs, gallops, or rubs. Regular rate and rhythm. Respiratory: Clear bilaterally to auscultation. No work of breathing or using accessory muscles. Abdomen is soft, nontender to palpation. Bowel sounds present. No organomegaly. Extremities: No clubbing, cyanosis, or edema. Peripheral pulses present in both legs. Neurological exam. The patient is alert and oriented x3. Hand tremor noted. A tremor noted in both hands. Patient moves 4 extremities. Extremities: We have noticed a splint around the right leg. LABORATORY DATA: White cell count 4.20, hemoglobin 13.0, hematocrit 36.4, platelets 127,000. BMP unremarkable. ASSESSMENT AND PLAN: 1. Right distal tibia/fibular fracture with multiple fractures. Orthopedics has been consulted. We will follow the recommendations from them. 2. Alcohol withdrawal symptoms. Actually, the patient had over 320 mg of alcohol so, I do not think he is going to have withdrawals right now. He was started yesterday on Librium, pretty good doses, 50 mg p.o. 3 times per day. We are going to add baclofen to his current treatment 20 mg p.o. t.i.d. as well. Also, he is on Ativan IV p.r.n. In any case, I think this patient can undergo orthopedic surgery without any problem. The patient is on right medications. Actually, he is on 2 medications to control any possible alcohol withdrawal and also Ativan p.r.n. I do not see any problems taking him to the OR. 3. Transaminitis of course related to alcohol abuse. 4. History of asthma/chronic obstructive pulmonary disease. The patient is a heavy smoker, and he was smoking almost 2 packs per day of cigarettes for many years. So, I think this could be a mix of COPD and asthma. In any case, he is on breathing treatments every 4 hours, and we will continue with the same management. 5. Deep vein thrombosis prophylaxis, on Lovenox. 6. Gastrointestinal prophylaxis on Protonix. cc: Angel Belle MD MTDParviz
[2016-08-21] MEDS: TORADOL IV SCH ×2 (01:12→08:34)
[2016-08-21] MEDS: NS 1,000 ML IV SCH ×2 (01:16→14:24)
[2016-08-21] MEDS: DUONEB (A & A) INH SCH ×6 (04:00→23:29)
[2016-08-21] MEDS: MORPHINE IV PRN ×4 (04:27→20:17)
[2016-08-21 04:59] LABS: MANUAL DIFF NEEDED? NO
[2016-08-21 05:02] LABS: BASO% 0.3 % (0.0-0.8); EOS# 0.03 X1000 (0.0-0.7); EOS% 0.8 % (0.0-10.0); HEMATOCRIT 36.3 % (42.0-52.0); HEMOGLOBIN 12.7 g/dL (14.0-18.0); IMM GRAN# 0.02 X1000 (0.0-0.04); IMM GRAN% 0.6 % (0.0-0.5); LYMPH# 0.98 X1000 (1.2-3.4); LYMPH% 27.7 % (20.5-51.1); MCH 36.4 PG (27-31); MONO# 0.37 X1000 (0.11-0.59); MONO% 10.5 % (1.7-9.3); MPV 10.5 FL (7.4-10.4); NEUT% 60.1 % (42.2-75.2); PLT 125 X1000 (130-400); RBC 3.49 XMIL (4.7-6.1)
[2016-08-21 05:28] LABS: AGAP 13; BUN 9 mg/dL (8-22); CALCIUM 7.8 mg/dL (8.8-10.2); CHLORIDE 106 mmol/L (98-107); COSMO 271; POTASSIUM 5.3 mmol/L (3.5-5.1); SODIUM 136 mmol/L (136-145); TCO2 17 mmol/L (25-35)
[2016-08-21] MEDS: PRILOSEC PO SCH (06:30)
[2016-08-21] MEDS: LIBRIUM PO SCH ×3 (06:31→23:30)
[2016-08-21] MEDS: LOVENOX SUBQ SCH (08:34)
[2016-08-21] MEDS: NICODERM PATCH TD SCH ×2 (08:34)
[2016-08-21] MEDS: LIORESAL PO SCH ×3 (08:34→20:18)
[2016-08-21] MEDS: M.V.I.-12 10 ML, FOLIC ACID 1 MG, MAGNESIUM SULFATE 1 GM, THIAMINE 100 MG in NS 1,000 ML IV SCH (08:34)
[2016-08-21] MEDS: ATIVAN IV PRN ×3 (11:25→20:18)
--- NOTE | 2016-08-21 12:06 | PROGRESS NOTE ---
DATE: 08/21/2016 SUBJECTIVE: Patient reports feeling fine. He is still complaining of hand tremors. He denies any nausea, vomiting. OBJECTIVE: Vital Signs: Temperature 98.5 degrees, heart rate 62, respiratory 16, blood pressure 145/114, O2 saturation 97% on 2 L nasal cannula. General Examination: This is a 41-year-old male, looking older than his age, lying in bed, in no acute distress. HEENT: Head is normocephalic, atraumatic. Anicteric sclerae and pale conjunctivae. Mucous membranes moist. Pupils equal, round, reactive to light and accommodation. Neck: Supple. No JVD noted. No carotid bruits. No lymphadenopathy. No thyromegaly. Cardiovascular: S1, S2 heard. No murmurs, gallops, or rubs. Regular rate and rhythm. Respiratory: Clear bilaterally to auscultation. No work of breathing or using accessory muscles. Abdomen: Soft, nontender to palpation. Bowel sounds present. No organomegaly. Extremities: No clubbing, cyanosis, or edema. Peripheral pulses present in both legs. There is a splint around the right leg noted. Neurological: Patient is alert and oriented x3. Moves 4 extremities. LABORATORY DATA: CBC shows white cell count 3.54, hemoglobin 12.7, hematocrit 36.3, platelets of 125,000. Sodium 136, potassium 5.3, chloride 106, bicarb 17, BUN 9, creatinine 0.8. ASSESSMENT AND PLAN: 1. Right distal tibiofibular fracture with multiple fractures, Dr. Summers, from Orthopedics is following this patient. 2. Alcohol intoxication. Patient now is still reporting some hand tremors. To my evaluation, this patient has been he today and on the 1st day he had alcohol levels of 320. He was started on Librium 50 mg p.o. t.i.d. We added yesterday baclofen 20 mg p.o. t.i.d. as well. With those doses of medications, generally speaking, we should be able to control any alcohol withdrawal, that I do not think he is going to develop after he had 320 mg of alcohol in the blood 1 day ago. In any case, I am not completely sure that this patient is faking those symptoms or not because there are no changes in mental status with this hand tremor and patient is not tachycardic and he is just showing hand tremors that he is able to control every time we draw some blood. In any case, I am going to continue with both medication while he is here. I do not see any reason why this patient can not have any surgery for the fracture. We will see what Dr. Summers decides. 3. Transaminitis. This condition, of course, is related alcohol abuse. We are going to check LFTs tomorrow. 4. History of asthma, chronic obstructive pulmonary disease. This patient is a really heavy smoker, smoking 2 packs per day for many years. That is why this patient is requiring oxygen but generally speaking, he is stable. 5. Deep vein thrombosis prophylaxis. On Lovenox. 6. Gastrointestinal prophylaxis. On Protonix. 7. Patient overall is stable. We are going to transfer him out of the intensive care unit today. Addendum: I spoke with Dr. Summers from Orthopedics and from his standpoint patient can be discharged and will be seen in the office next wednesday. cc: Angel Belle MD MTDD
[2016-08-21] MEDS: NORCO-7.5 PO PRN ×3 (14:25→23:21)
[2016-08-22] MEDS: MORPHINE IV PRN ×2 (00:38→12:25)
[2016-08-22] MEDS: ATIVAN IV PRN ×3 (00:38→12:25)
[2016-08-22] MEDS: DUONEB (A & A) INH SCH ×3 (03:27→10:59)
[2016-08-22] MEDS: NORCO-7.5 PO PRN ×2 (03:31→08:01)
[2016-08-22] MEDS: NS 1,000 ML IV SCH ×2 (03:33→08:13)
[2016-08-22 05:48] LABS: BASO% 0.4 % (0.0-0.8); EOS# 0.13 X1000 (0.0-0.7); EOS% 2.6 % (0.0-10.0); HEMATOCRIT 36.7 % (42.0-52.0); HEMOGLOBIN 12.6 g/dL (14.0-18.0); IMM GRAN# 0.02 X1000 (0.0-0.04); IMM GRAN% 0.4 % (0.0-0.5); LYMPH# 1.18 X1000 (1.2-3.4); LYMPH% 23.2 % (20.5-51.1); MANUAL DIFF NEEDED? NO; MCH 36.1 PG (27-31); MCHC 34.3 g/dL (33-37); MCV 105.2 FL (81-99); MONO# 0.53 X1000 (0.11-0.59); MONO% 10.4 % (1.7-9.3); MPV 10.6 FL (7.4-10.4); PLT 124 X1000 (130-400); RBC 3.49 XMIL (4.7-6.1)
[2016-08-22 06:19] LABS: AGAP 12; BUN 5 mg/dL (8-22); CHLORIDE 104 mmol/L (98-107); COSMO 276; POTASSIUM 3.7 mmol/L (3.5-5.1); SODIUM 140 mmol/L (136-145); TCO2 24 mmol/L (25-35)
[2016-08-22] MEDS: LIBRIUM PO SCH (06:30)
[2016-08-22] MEDS: NICODERM PATCH TD SCH ×2 (07:59→08:00)
[2016-08-22] MEDS: LIORESAL PO SCH (08:00)
[2016-08-22] MEDS: LOVENOX SUBQ SCH (08:01)
[2016-08-22] MEDS: M.V.I.-12 10 ML, FOLIC ACID 1 MG, MAGNESIUM SULFATE 1 GM, THIAMINE 100 MG in NS 1,000 ML IV SCH (08:02)
[2016-08-22] MEDS: PRILOSEC PO SCH (08:12)
[2016-08-22 11:56] VITALS: BP 135/75
--- NOTE | 2016-08-22 14:34 | DISCHARGE SUMMARY ---
ADMISSION DATE: 08/19/2016 DISCHARGE DATE: 08/22/2016 DISCHARGE DIAGNOSES: 1. Right distal tibia fibular fracture. 2. Alcohol abuse resolved. 3. Transaminitis improved. 4. History of asthma. 5. Tobacco abuse. CONSULTATIONS: Dr. Summers from Orthopedic Surgery. HOSPITAL COURSE: This is a 41-year-old male with history of asthma and chronic alcohol abuse of 6-15 beers per day. Patient was admitted to the hospital for alcohol intoxication and he was found here to have a distal shaft of the fibula fracture. Because this patient was clearly overtly intoxicated he was sent to the unit. He was placed on withdrawal precautions. Patient woke up the next day. We were administering Ativan and patient was improving clinically. IV fluids were provided. As per Orthopedic Surgery they said that what they usually do when there is a patient with fractures is to operate day #1 otherwise that area gets swelling. So this surgery does not need to be done here while this patient is in the hospital so they were okay to send this patient to go home with followup next Wednesday. The patient is going to be provided pain medications. Patient will be provided also medications to avoid alcohol withdrawal. Patient is being discharged in stable condition. DISCHARGE PHYSICAL EXAMINATION: Vitals: Temperature 97.5 degrees, heart rate 80, respiratory rate 16, blood pressure 135/75, O2 saturation 100% on room air. General Examination: This is a 41-year-old male, looking older than his age, lying in bed, in no acute distress. HEENT: Head is normocephalic, atraumatic. Anicteric sclerae and pale conjunctivae. Mucous membranes moist. Supple. No JVD noted. No carotid bruits. No lymphadenopathy. No thyromegaly. Cardiovascular: S1, S2 heard. No murmurs, gallops, or rubs. Regular rate and rhythm. Respiratory: Clear bilaterally to auscultation. No work of breathing or using accessory muscles. Abdomen: Soft, nontender to palpation. Bowel sounds present. No organomegaly. Extremities: The right leg covered by dressing. Neurological: Patient alert and oriented x3. Moves 4 extremities. DISCHARGE DISPOSITION: To home with self care. FOLLOWUP: With Dr. Summers next Wednesday. LIST OF MEDICATIONS: 1. Baclofen 20 mg p.o. t.i.d. 2. Chlordiazepoxide as directed. 3. [place] 10 1 tablet p.o. every 4 hours as needed for pain. cc: Angel Belle MD
== END 2016-08-22 14:52 | disposition home or self-care (01) ==
LOC: ED 09:15 → ICU 13:15 → 4N 08-21 11:02
PROVIDERS: ATTEND Internal Medicine